=== PATIENT | male | born 1955 | race Caucasian/White ===

== ENCOUNTER 2022-08-23 06:00 | Day surgery (SDC) | payer OTHER, SELFPAY ==
[2022-08-18 10:00] VITALS: BMI 29.0
--- NOTE | 2022-08-19 | ECG_ITS ---
Test Reason : preop Blood Pressure : / mmHG Vent. Rate : 092 BPM Atrial Rate : 092 BPM P-R Int : 152 ms QRS Dur : 074 ms QT Int : 376 ms P-R-T Axes : 050 002 028 degrees QTc Int : 464 ms Normal sinus rhythm Possible Left atrial enlargement Inferior infarct , age undetermined Abnormal ECG No previous ECGs available Referred By: Kimi Becker Electronically Signed By:GASTON WALLACE MD
[2022-08-19 10:01] VITALS: BMI 28.3
[2022-08-19 10:07] VITALS: BP 154/94; PULSE 98; RESP 16; O2SAT 97
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
[2022-08-19 12:08] LABS: Hematocrit 39.6 % (42.0-52.0); Hemoglobin 13.6 g/dl (14.0-18.0); Mean Corpuscular HGB Conc 34.3 g/dl (31.0-36.0); Mean Corpuscular Hemoglobin 30.7 pg (27.0-33.0); Mean Corpuscular Volume 89.4 fL (80.0-98.0); Mean Platelet Volume 10.9 fL (9.4-12.4); Platelet Count 385 X10*3/uL (160-400); Red Blood Count 4.43 X10*6/uL (4.60-5.80); Red Cell Distribution Width 14.7 % (11.0-16.0); White Blood Count 10.7 X10*3/uL (4.8-10.8)
[2022-08-19 12:33] LABS: Estimated Average Glucose 120 mg/dL; Hemoglobin A1c % 5.8 %
[2022-08-19 13:58] LABS: Anion Gap 16 (12-20); Blood Urea Nitrogen 13 mg/dL (9-16); Calcium 9.6 mg/dL (8.4-10.2); Carbon Dioxide 20 mmol/L (22-29); Chloride 108 mmol/L (96-108); Creatinine Clr Calc Pharmacy 54.9; Estimated Glomerular Filt Rate 54; Glucose Random 76 mg/dL (60-115); Potassium 4.7 mmol/L (3.3-5.1); Sodium 139 mmol/L (135-145)
[2022-08-23] VITALS (18 sets, daily range): BP systolic 124–153; BP diastolic 68–90; PULSE 90–98; RESP 16–20; TEMP 36.6–36.9; O2SAT 95–99
--- NOTE | ~2022-08-23 | FL_ITS ---
EXAMINATION: XR FLUOROSCOPY WITH IMAGES CLINICAL INFORMATION: L4,5 lami/decom multi left COMPARISON: None available. TECHNIQUE: Fluoroscopy Supervised By: Dr. David Olivarez. Fluoroscopy Time: under 1 minute Cumulative Dose: 0.7 mGy. DAP: 0.0123 mGycm2. Images: 1. FL/FL guidance in OR FINDINGS/IMPRESSION: There is a metallic clamp overlying the posterior elements lumbar spine with tip pointing towards the L4-5 disc.
[2022-08-23] MEDS: methocarbamoL 750 MG TABLET PO (06:30)
[2022-08-23] MEDS: Gabapentin 300 MG CAPSULE PO (06:30)
[2022-08-23] MEDS: Lactated Ringers 1,000 ML 80 ML IVCONT (06:34)
[2022-08-23 07:02] LABS: Glucose, Whole Blood 107 mg/dL (60-115)
--- NOTE | 2022-08-23 09:41 | PM.DS ---
DS: Providers Provider Date of Service: 08/23/22 Date of discharge: 08/23/22 Primary care physician: Ramakrishna Rivera III, MD Admitting clinician: David Olivarez Attending physician on discharge: David Olivarez DS: Diagnosis Discharge Diagnosis (1) Lumbar stenosis: Status: Acute DS: Summary Time Spent with Patient Time attestation: Total time managing care of this patient today ____ minutes. Discharge coordination time: Less than 30 minutes Quality: Safe Use of Opioids Does Pt have an Active Cancer Diagnosis on the Problem List?: No Quality: Stroke Does the patient have a stroke diagnosis?: No Physical Exam Vital Signs: Vital Signs: Last Vital Signs Temp 98.4 F 08/23/22 06:22 Pulse 93 08/23/22 06:22 Resp 16 08/23/22 06:22 BP 153/85 H 08/23/22 06:22 Pulse Ox 97 08/23/22 06:22 O2 Del Method Room Air 08/23/22 06:22 BMI result Body Mass Index 28.3 DS: Data Data Completed and Pending Labs on day of discharge: Laboratory Results - last 24 hr 08/23/22 06:58 POC Glucose 107 Discharge Plan Discharge Patient Disposition: Home, Self-Care Referrals: Ramakrishna Rivera III, MD [Primary Care Provider] - 1 Week Discharge Medications: New oxycodone 5 mg tablet 5 mg PO Q4H PRN (Reason: pain) Qty: 30 0RF Rx Instructions: Partial Fill upon patient request. docusate sodium [Colace] 100 mg capsule 100 mg PO BID Qty: 20 0RF Continued cyclobenzaprine 10 mg Tablet 10 mg PO BID PRN (Reason: Muscle Spasm) atorvastatin 20 mg Tablet 20 mg PO BEDTIME glipizide 10 mg Tablet 10 mg PO BID tamsulosin 0.4 mg Capsule 0.4 mg PO DAILY trazodone 100 mg Tablet 150 mg PO BEDTIME metformin 1,000 mg Tablet 1,000 mg PO BID vitamin B complex Tablet 1 tab PO DAILY lisinopril 40 mg Tablet 40 mg PO DAILY fluticasone propionate [Flonase Allergy Relief] 50 mcg/actuation [place],Suspension 1 spray INTRANASAL BID Rx Instructions: administer into each nostril albuterol sulfate 90 mcg/actuation HFA aerosol inhaler 2 puff inhalation Q4H PRN (Reason: Shortness Of Breath Or Wheezing) zolpidem 12.5 mg tablet,ext release multiphase 12.5 mg PO BEDTIME PRN (Reason: Insomnia) Discontinued oxycodone-acetaminophen 5-325 mg tablet 1 tab PO BID PRN (Reason: Pain) Discharge Orders: Discharge Order (Routine); Ordered 08/23/22 Ordered By: Alex Conteh Diet: Advance to usual diet Activity on Discharge: As tolerated Activity Restrictions/Additional Instructions: After your spinal surgery we ask you to observe the following restrictions/guidelines: Activity: It is normal to feel some discomfort as you increase your activity, but that will improve with time. We ask you avoid heavy lifting or acitivities that cause pain. As a general rule, 8lbs is a safe limit for lifting right after surgery. Walk as much as you feel comfortable but not to exhaustion. You will feel extra tired the first few days after surgery. Stay well hydrated. It is OK to walk up and down stairs You may return to driving when you are off narcotics (such as vicodin, oxycodone, dilaudid, etc), and you are back to normal functional capacity. If you have any concerns please check with office before driving. Return to work is specific to each patient and each surgery, so please speak with your doctor/PA at first follow up. Please bring paperwork such as FMLA at that time if you need it filled out. Medications: We will give you a short supply of narcotics after surgery (usually one weeks worth). If you need more please call the office but do not use more than prescribed. You will need to give our office 48 hours notice if you need narcotics refilled and we do not fill narcotics on weekends or evenings. If you are on a narcotic, it is a good idea to take a stool softener such as colace or senna to avoid constipation If you take blood thinner such as aspirin, Plavix, Coumadin, Effient, Eliquis etc for conditions such as Afib, DVT, Pulmonary embolus, coronary disease, stents etc please speak with your surgeon about specific details as to when you can resume these medications. You can resume NSAIDs on post op day 1 (eg: Motrin, Naproxen, etc). Follow up: Please call the office, , after surgery to arrange a 3 week follow up for wound check. Wound Care: You may remove your dressing on the first day after surgery. You may leave open to air. Please do not remove the steri strips underneath. they will fall off on their own in one week. IT IS NORMAL FOR THE WOUND TO OOZE OR BE BLOODY FOR A FEW DAYS AFTER SURGERY. IF THIS HAPPENS JUST PLACE NEW DRESSING OVER IT TO AVOID STAINING CLOTHES. You may shower on post op day # 1 We ask that you do not let the water soak the wound. If it does get wet, just towel dry lightly. Please do not scrub your incision or place any type of chemical/ointment on the wound. No tub baths, pools or jacuzzis for one month. If you have any leaking or redness from your wound, or fevers, please call office
[2022-08-23] MEDS: fentaNYL citrate/PF 100 MCG/2 ML VIAL 25 MCG IVPUSH ×4 (10:41→11:10)
[2022-08-23] MEDS: oxyCODONE HCl Immed Release 5 MG TABLET 10 MG PO (10:44)
--- NOTE | 2022-08-24 16:11 | P.OP_ITS ---
Operative Note Operative Note Date of Service: 08/23/22 Narrative: Diagnosis: Left t lumbar radiculopathy due to a L4-5 disc herniation Procedure: Left L4-5 lumbar microdiskectomy with microscope Surgeon: David Olivarez MD Processing Specialist: Alex KING Description of procedure: This 67-year-old male previously underwent a left L4- 5 lumbar decompression. He responded well to surgery but unfortunately developed recurrent symptoms. A repeat MRI showed progression of a previous seen L4-5 disc bulge compressing the left L5 nerve root. He was offered a lumbar microdiskectomy. The procedure complications were explained. He was consented. He was brought to the operating room and endotracheally intubated. He was turned in a prone position on the Gera frame. Appropriate drape was done followed by time-out. The initial access was done by the physician professional nursing assistant. He opened the previous mid lumbar incision and released paravertebral muscles on the left side to expose the L4-5 interspace. An intraoperative x-ray was obtained to confirm the correct level. Hemostasis was done. The microscope was brought in. I took over the procedure. I extended to previous L4 laminotomy cranially with the high-speed drill. I identified the flavum ligament and released the flavum ligament caudally to expose the underlying dura. The L5 nerve root was identified and the disc space was exposed. An annulotomy was done. Pituitary was used to remove some fragments. A nerve hook was pushed on the disc space to express some fragments. The disc space was again inspected for residual fragments but none were found. A nerve hook could be easily passed under the L5 nerve root this is sign of adequate decompression. The microscope was removed. The physician professional nursing assistant provided hemostasis and closed incision in 2 layers. All sponge and needle counts were correct. Patient was extubated and transported in a stable condition to recovery room. Anesthesia: General Blood loss: 25 cc Complications: None Disposition: PACU and discharge
== END 2022-08-23 13:01 | disposition home or self-care (01) ==
PROVIDERS: Nurse Practitioner; PCP Internal Medicine; Visit Provider Neurological Surgery
PROC: (CPT 63030; principal; 2022-08-23 07:30)
DX: M51.16 Intervertebral disc disorders with radiculopathy, lumbar region (principal); M51.36 Other intervertebral disc degeneration, lumbar region; M48.062 Spinal stenosis, lumbar region with neurogenic claudication; M25.552 Pain in left hip; R20.0 Anesthesia of skin; I10 Essential (primary) hypertension; E78.00 Pure hypercholesterolemia, unspecified; E11.9 Type 2 diabetes mellitus without complications; Z79.51 Long term (current) use of inhaled steroids; Z79.84 Long term (current) use of oral hypoglycemic drugs; Z79.899 Other long term (current) drug therapy; Z99.89 Dependence on other enabling machines and devices; Z87.891 Personal history of nicotine dependence
CPT/HCPCS: 63030; 36415; 80048; 82947; 83036; 85027; 93005; 99499; J0131; J0690; J1100; J1885; J2370; J2405; J3010

== ENCOUNTER → 2022-09-13 13:30 | Outpatient (BNVA) | payer OTHER, SELFPAY | PROVIDERS: PCP Internal Medicine; Visit Provider Neurological Surgery | DX: Z98.890 Other specified postprocedural states (principal); Z79.891 Long term (current) use of opiate analgesic | CPT/HCPCS: 99212 ==